=== PATIENT | female | born 1950 | race Caucasian/White ===

== ENCOUNTER 2016-09-15 03:24 | Emergency (ER) | payer MEDICARE, OTHER ==
--- NOTE | ~2016-09-15 | ER ---
PATIENT'S NAME: GOPAL CORCORAN [facility] AGE: 66 Y [address] ROOM: [place] [address] LOCATION: [facility] ADMIT DATE: 09/15/2016 ER/Outpatient Report DISCHARGE DATE: 09/15/2016 FAMILY PHYSICIAN: Gonzalo Joyner MD ATTENDING PHYSICIAN: Jorgito German Time of arrival: 0324 hours. Time seen: 0325 hours. IDENTIFICATION: A 66-year-old female. CHIEF COMPLAINT: Chest pain. HISTORY OF PRESENT ILLNESS: The patient is a 66-year-old female from [place] in [place], who presents with substernal chest pain that she has had often on all night. She does not quantitate how long it lasts. She cannot tell me when the pain she is having now actually started. She describes it as a dull pain. No radiation. She says she has a little bit of stomach upset. No nausea. No vomiting. No diaphoresis. No lightheadedness or dizziness. ALLERGIES: 1. PENICILLIN. 2. ERYTHROMYCIN. 3. LEVAQUIN. 4. POLYCILLIN. CURRENT MEDICATIONS: 1. Zantac. 2. Telmisartan. 3. Fish oil. 4. Aspirin 81 mg. MEDICAL PROBLEMS: 1. Peptic ulcer disease. 2. Hypertension. PRIOR SURGERIES: 1. Tubal ligation. 2. Foot surgery. FAMILY HISTORY: PATIENT'S NAME: GOPAL CORCORAN [facility] AGE: 66 Y [address] ROOM: [place] [address] LOCATION: [facility] ADMIT DATE: 09/15/2016 ER/Outpatient Report DISCHARGE DATE: 09/15/2016 FAMILY PHYSICIAN: Gonzalo Joyner MD ATTENDING PHYSICIAN: Jorgito German Father had NC at age 50. SOCIAL HISTORY: The patient lives in [place], [place]. Tobacco use, denies. Alcohol use, denies. Drug use, denies. REVIEW OF SYSTEMS: All systems reviewed and negative other than what is noted in the HPI. PHYSICAL EXAMINATION: VITAL SIGNS: Height 5 feet 5 inches and weight 91.2 kg. Blood pressure 208/105 pulse 77, respirations 16, temperature 97.6, sats 97% on room air. Blood pressure came down to 151/88 and 148/86. HEENT: Unremarkable. LUNGS: Clear to auscultation. HEART: Regular rate and rhythm. ABDOMEN: Soft, nondistended, and nontender, SKIN: [place], warm, and dry. No lesions or rashes noted. NEURO: No focal deficit. No lower extremity edema. No calf tenderness. DIAGNOSTIC DATA: EKG normal sinus rhythm. No acute ST elevation or depression. Chest x-ray, no acute process. Pending Radiology over-read. D-dimer 0.85. The patient repeat views CT PE protocol and does understand the consequences of possible PE. LABORATORY DATA: Sodium 141, potassium 4.0, chloride 107, CO2 of 25, BUN 14, creatinine 0.8, blood sugar 103. Liver enzymes normal. Magnesium 2.1. CPK 305, CK-MB 3.7, troponin I less than 0.040. Hemoglobin 13.2, hematocrit 41.1, platelets 242, white count 8.8. Normal differential INR 0.95. ProBNP less than 30. 90 minute enzymes negative. The patient refused CT PE protocol. IMPRESSION AND PLAN: 1. Chest pain. The patient was given a GI cocktail with complete resolution of her symptoms. 2. Gastroesophageal reflux disease. 3. Elevated D-dimer. The patient refused CT scan. 4. Hypertension. PLAN: Prilosec 20 mg daily. Rest and follow up with return of chest pain or further problems. Follow up with Dr. Joyner in 2 to 3 days. Follow up sooner if any problems PATIENT'S NAME: GOPAL CORCORAN [facility] AGE: 66 Y [address] ROOM: [place] [address] LOCATION: ED ADMIT DATE: 09/15/2016 ER/Outpatient Report DISCHARGE DATE: 09/15/2016 FAMILY PHYSICIAN: Gonzalo Joyner MD ATTENDING PHYSICIAN: Jorgito German or concerns. All questions have been answered. JORGITO GERMAN MD CAR/modl /[id number] d: 09/15/16 1128 t: 09/25/16 0620, OUTPATIENT REPORT
[2016-09-15 03:49] LABS: BASOPHIL # 0.1 K/uL (0.0-0.2); BASOPHIL % 0.6 %; EOSINOPHIL # 0.2 K/uL (0.0-0.5); EOSINOPHIL % 2.3 %; HEMATOCRIT 41.1 % (33.0-46.0); HEMOGLOBIN 13.2 g/dL (10.0-15.0); IMMATURE GRANULOCYTE % 0.2 %; LYMPHOCYTE # 2.2 K/uL (0.8-4.0); LYMPHOCYTE % 24.6 %; MCH 30.8 pg (27.0-34.0); MCHC 32.1 gm/dL (32.0-36.5); MONOCYTE # 0.5 K/uL (0.0-1.0); MONOCYTE % 5.2 %; MPV 10.2 fl (9.4-12.4); NEUTROPHIL # (ANC) 5.9 K/uL (1.8-7.8); NEUTROPHIL % 67.1 %; NRBC % 0 /100WBC (0-0.00); PLATELET COUNT 242 K/uL (150-450); RBC 4.28 M/uL (3.50-5.50); RDW-CV 13.1 % (11.9-14.6); WBC 8.8 K/uL (4.0-11.0)
[2016-09-15 04:07] LABS: INR - (THERAPEUTIC) 0.95 (0.92-1.07); PTT 26 SECONDS (25-32)
[2016-09-15 04:08] LABS: ALBUMIN 3.4 gm/dL (3.5-5.0); ALK PHOS 96 IU/L (33-138); ALT 25 IU/L (12-78); AST 18 IU/L (10-40); BLOOD UREA NITROGEN 14 mg/dL (6-24); CALCIUM 9.3 mg/dL (8.5-10.5); CHLORIDE 107 mMol/L (96-110); CO2 25 mMol/L (22-32); CPK 305 IU/L (21-215); CREATININE 0.8 mg/dL (0.5-1.1); ESTIMATED GFR (MDRD EQUATION) > 60; MAGNESIUM 2.1 mg/dL (1.8-2.6); SODIUM 141 mMol/L (135-145); TOTAL BILIRUBIN 0.3 mg/dL (0.0-1.5); TOTAL PROTEIN 7.7 g/dL (6.0-8.4)
[2016-09-15 05:38] LABS: CPK 267 IU/L (21-215)
== END 2016-09-15 05:57 | disposition disaster alternative care site (69) ==
LOC: GMED 03:24
PROVIDERS: Family Medicine
DX: K21.9 Gastro-esophageal reflux disease without esophagitis (principal); I10 Essential (primary) hypertension; Z88.0 Allergy status to penicillin; Z88.1 Allergy status to other antibiotic agents; Z79.01 Long term (current) use of anticoagulants; Z79.899 Other long term (current) drug therapy; Z87.11 Personal history of peptic ulcer disease; Z98.890 Other specified postprocedural states